=== PATIENT | female | born 1940 | race Caucasian/White ===

== ENCOUNTER 2019-02-27 07:00 | Emergency (ER) | payer MEDICARE ==
[~2019-02-27] VITALS: Ht 165.1 cm; Wt 73.6 kg
[2019-02-27 07:01] VITALS: BP 124/44
[2019-02-27] MEDS ORDERED: oxymetazoline 15 ML nasal spray NS ONE (07:20)
== END 2019-02-27 07:41 | disposition home or self-care (01) ==
LOC: ER 07:00
DX: R09.81 Nasal congestion (principal)
CPT/HCPCS: 99282